=== PATIENT | male | born 1965 | race Caucasian/White ===

== ENCOUNTER 2020-06-18 15:57 | Inpatient (IN) | payer BC, OTHER ==
[2020-06-18] MEDS ORDERED: ACETAMINOPHEN 1000 MG/100 ML VIAL (NON FORMULARY) IVPB ONE (17:09)
[2020-06-18] MEDS ORDERED: ASPIRIN 81 MG CHEWABLE TABLETS PO ONE (17:09)
[2020-06-18 18:06] LABS: INR 1.2 (0.83-1.09); PROTHROMBIN TIME (PATIENT) 14.4 SEC (9.7-13.0)
[2020-06-18 18:09] LABS: ACTIVATED PTT 29.8 SECONDS (25.2-36.5)
[2020-06-18] MEDS ORDERED: ACETAMINOPHEN INJECTION 100 ML IVPB ONE (18:17)
[2020-06-18] MEDS ORDERED: ASPIRIN 81 MG CHEWABLE TABLETS ONE (18:17)
[2020-06-18 18:29] LABS: POTASSIUM 3.9 mmol/L (3.5-5.1)
[2020-06-18 18:31] LABS: CALCIUM 8.1 mg/dL (8.5-10.1)
[2020-06-18 18:35] LABS: BILIRUBIN,DIRECT 0.3 mg/dL (0.0-0.2)
[2020-06-18 18:36] LABS: BILIRUBIN,TOTAL 0.8 mg/dL (0.2-1); TOT PROT 6.9 g/dl (6.4-8.2)
[2020-06-18] MEDS ORDERED: DEXAMETHASONE SOD PHOSPHATE 4 MG/1 ML VIAL IVPUSH ONE (18:48)
[2020-06-18 18:58] VITALS: BMI 40.4
[2020-06-18 18:59] LABS: BASO % 0.4 % (0-2.0); HEMATOCRIT 45.2 % (35.4-49); HEMOGLOBIN 15.2 GM/dL (11.7-16.9); LYMPH % 19.5 % (8-40); MCH 30.9 pg (25.7-33.7); MCHC 33.6 g/dl (32.0-35.9); MEAN CELL VOLUME 91.9 fl (80-96); MEAN PLT VOLUME 7.9 fl (7.5-11.1); MONO % 11.8 % (3.8-10.2); NEUT % 66.3 % (42.8-82.8); PLATELET COUNT 199 K/MM3 (134-434); RBC 4.92 M/mm3 (4.00-5.60); RDW 13.8 % (11.9-15.9); WHITE BLOOD COUNT 5.5 K/mm3 (4.0-10.0)
[2020-06-18] MEDS ORDERED: DEXAMETHASONE SOD PHOSPHATE 10 MG/1 ML VIAL ONE (19:57)
[2020-06-18 20:09] LABS: EPI CELLS 17 /uL (0-25.1); HYALINE CASTS 4 /uL (0-3.1); URINE APPEARANCE CLEAR; URINE BACTERIA 54 /uL (0-1359); URINE BILIRUBIN 1+ (NEGATIVE); URINE COLOR DK YELLOW; URINE GLUCOSE (UA) NEGATIVE (NEGATIVE); URINE KETONE 2+ (NEGATIVE); URINE LEUK ESTERASE NEGATIVE (NEGATIVE); URINE NITRITE NEGATIVE (NEGATIVE); URINE PROTEIN 2+ (NEGATIVE); URINE RBC 17 /uL (0-23.9); URINE WBC 10 /uL (0-25.8)
[2020-06-19] MEDS ORDERED: ALBUTEROL SO4 HFA INHALER IH PRN (00:51)
[2020-06-19 08:10] LABS: POTASSIUM 4.6 mmol/L (3.5-5.1)
[2020-06-19 08:16] LABS: ALBUMIN 2.8 g/dl (3.4-5.0); BLOOD UREA NITROGEN 22.6 mg/dL (7-18); CALCIUM 8.5 mg/dL (8.5-10.1)
[2020-06-19 08:19] LABS: CREATININE 0.9 mg/dL (0.55-1.3)
[2020-06-19 08:20] LABS: BASO % 0.3 % (0-2.0); HEMOGLOBIN 15.5 GM/dL (11.7-16.9); LYMPH % 21.9 % (8-40); MCH 30.9 pg (25.7-33.7); MCHC 33.7 g/dl (32.0-35.9); MEAN CELL VOLUME 91.7 fl (80-96); MEAN PLT VOLUME 8.2 fl (7.5-11.1); NEUT % 68.8 % (42.8-82.8); PLATELET COUNT 206 K/MM3 (134-434); RBC 5.02 M/mm3 (4.00-5.60); RDW 13.7 % (11.9-15.9)
[2020-06-19 08:21] LABS: BILIRUBIN,TOTAL 0.6 mg/dL (0.2-1)
[2020-06-19 09:22] VITALS: TEMP 98.6
[2020-06-19] MEDS ORDERED: AZITHROMYCIN IVPB 500 MG/250 ML BAG IVPB SCH (10:00)
[2020-06-19] MEDS ORDERED: ASCORBIC ACID 500 MG TABLET (FP) PO SCH (10:00)
[2020-06-19] MEDS ORDERED: LOSARTAN POTASSIUM 50 MG TABLET PO SCH (10:00)
[2020-06-19] MEDS ORDERED: ZINC SULFATE 220 MG CAPSULE (FP) PO SCH (10:00)
[2020-06-19] MEDS ORDERED: ENOXAPARIN NA (PORCINE) 40 MG/0.4 ML DISP.SYRIN SQ SCH (10:00)
[2020-06-19] MEDS ORDERED: CHOLECALCIFEROL (VIT D3) 1,000 UNIT (25 MCG) TABLET PO SCH (10:00)
[2020-06-19] MEDS ORDERED: DEXAMETHASONE SOD PHOSPHATE 4 MG/1 ML VIAL IVPUSH SCH (10:00)
[2020-06-19] MEDS ORDERED: ZINC SULFATE 220 MG CAPSULE (FP) ONE (11:45)
[2020-06-19] MEDS ORDERED: ASCORBIC ACID 500 MG TABLET (FP) ONE (11:45)
[2020-06-19] MEDS ORDERED: LOSARTAN POTASSIUM 50 MG TABLET ONE (11:45)
[2020-06-19] MEDS ORDERED: DEXAMETHASONE SOD PHOSPHATE 10 MG/1 ML VIAL ONE (11:45)
[2020-06-19] MEDS ORDERED: AZITHROMYCIN IVPB 500 MG/250 ML BAG IVPB ONE (11:46)
[2020-06-19] MEDS ORDERED: CHOLECALCIFEROL (VIT D3) 1,000 UNIT (25 MCG) TABLET ONE (11:46)
[2020-06-19] MEDS ORDERED: ENOXAPARIN NA (PORCINE) 40 MG/0.4 ML DISP.SYRIN SQ ONE (11:46)
[2020-06-19] MEDS ORDERED: REMDESIVIR 200 MG in SODIUM CHLORIDE 210 ML IVPB ONE (15:00)
[2020-06-19 18:33] VITALS: BP 127/61; PULSE 90
[2020-06-20] MEDS ORDERED: REMDESIVIR 100 MG in SODIUM CHLORIDE 230 ML IVPB SCH (15:00)
== END 2020-06-19 16:00 | disposition left against medical advice (07) | DRG 178 ==
LOC: JER 15:57 → JERBED 18:26
PROVIDERS: ADMIT Internal Medicine; ATTEND Internal Medicine
DX: U07.1 COVID-19 (principal); Z68.41 Body mass index [BMI] 40.0-44.9, adult; I10 Essential (primary) hypertension; K21.9 Gastro-esophageal reflux disease without esophagitis; E78.5 Hyperlipidemia, unspecified; E66.01 Morbid (severe) obesity due to excess calories; G47.33 Obstructive sleep apnea (adult) (pediatric)
CPT/HCPCS: 36415; 71045-TC-FY; 71046-TC-FY; 80053; 81003; 82248; 82550; 82728; 83605; 83615; 83880; 84484; 85025; 85379; 85610; 85730; 86140; 87040; 87086; 87804; 93005; 93010; 99285-25; C9803; J0131; U0003

== ENCOUNTER 2022-05-22 10:08 | Inpatient (IN) | payer BC ==
[2022-05-15 13:39] VITALS: BMI 49.9
[2022-05-22] MEDS ORDERED: BUPIVACAINE HCL/PF 2.5 MG/ML - 30 ML VIAL IJ ONE (10:38)
[2022-05-22] MEDS ORDERED: ONDANSETRON 4 MG/2 ML VIAL IVPUSH PRN ×2 (11:34→14:35)
[2022-05-22] MEDS ORDERED: PROMETHAZINE HCL 25 MG/1 ML VIAL IVPUSH PRN (11:34)
[2022-05-22] MEDS ORDERED: oxyCODONE HCL 5 MG TABLET PO PRN (11:34)
[2022-05-22] MEDS ORDERED: LACTATED RINGERS SOLUTION 1,000 ML IV SCH (11:45)
[2022-05-22] MEDS ORDERED: PROPOFOL 20 ML ONE ×2 (12:02→12:06)
[2022-05-22] MEDS ORDERED: MIDAZOLAM HCL 2 MG/2 ML SINGLE DOSE VIAL ONE (12:02)
[2022-05-22] MEDS ORDERED: SUCCINYLCHOLINE CHLORIDE 200 MG/10 ML SYRINGE ONE (12:02)
[2022-05-22] MEDS ORDERED: ROCURONIUM BROMIDE 50 MG/5 ML SYRINGE ONE (12:02)
[2022-05-22] MEDS ORDERED: GLYCOPYRROLATE 0.2 MG/1 ML VIAL ONE ×3 (12:03→14:48)
[2022-05-22] MEDS ORDERED: LIDOCAINE HCL/PF 2% SDV 5ML VIAL ONE (12:08)
[2022-05-22] MEDS ORDERED: SODIUM CHLORIDE 0.9% P/F 10 ML VIAL IJ ONE (12:24)
[2022-05-22] MEDS ORDERED: ceFAZolin SODIUM 1 GM VIAL ONE (12:24)
[2022-05-22] MEDS ORDERED: ALBUTEROL SO4 HFA INHALER IH ONE (12:27)
[2022-05-22] MEDS ORDERED: ONDANSETRON 4 MG/2 ML VIAL ONE ×2 (12:27→13:58)
[2022-05-22] MEDS ORDERED: DEXAMETHASONE SOD PHOSPHATE 4 MG/1 ML VIAL ONE ×2 (12:27→13:58)
[2022-05-22] MEDS ORDERED: ACETAMINOPHEN INJECTION 100 ML IVPB ONE (13:28)
[2022-05-22] MEDS ORDERED: NEOSTIGMINE METHYLSULFATE 0.5 MG/1 ML - 10 ML MDV ONE (14:03)
[2022-05-22] MEDS ORDERED: HYDROmorphone HCL/PF 1 MG/ML VIAL IVPB PRN ×2 (14:38→14:39)
[2022-05-22] MEDS: METOCLOPRAMIDE HCL INJECTION 10 MG/2 ML VIAL IVPUSH SCH ×2 (15:00→22:19)
[2022-05-22] MEDS ORDERED: FAMOTIDINE 20 MG PREMIXED IVPB IVPB ONE (15:45)
[2022-05-22] MEDS ORDERED: FAMOTIDINE 20 MG/50 ML IVPB 20 MG/50 ML MG IVPB ONE (15:51)
[2022-05-22] MEDS: SODIUM CHLORIDE 1,000 ML IV SCH (16:00)
[2022-05-22 16:19] LABS: HEMATOCRIT 46.8 % (35.4-49); HEMOGLOBIN 15.5 G/dL (11.7-16.9); MCH 29.8 pg (25.7-33.7); MCHC 33.2 g/dl (32.0-35.9); MEAN CELL VOLUME 89.8 fl (80-96); MEAN PLT VOLUME 8.1 fl (7.5-11.1); PLATELET COUNT 213.8 10^3/uL (134-434); RBC 5.21 10^6/uL (4.00-5.60); RDW 14.5 % (11.9-15.9); WHITE BLOOD COUNT 12.8 10^3/uL (4.0-10.8)
[2022-05-22 16:23] LABS: ALBUMIN 3.9 g/dl (3.4-5.0); BILIRUBIN,TOTAL 1.5 mg/dl (0.2-1); CALCIUM 8.4 mg/dl (8.5-10); CREATININE 1.3 mg/dl (0.55-1.3); TOT PROT 6.7 g/dl (6.4-8.2)
[2022-05-22 21:58] LABS: HEMATOCRIT 46.6 % (35.4-49); HEMOGLOBIN 15.8 G/dL (11.7-16.9); MCH 30.3 pg (25.7-33.7); MCHC 33.9 g/dl (32.0-35.9); MEAN CELL VOLUME 89.4 fl (80-96); MEAN PLT VOLUME 7.8 fl (7.5-11.1); PLATELET COUNT 194.3 10^3/uL (134-434); RBC 5.21 10^6/uL (4.00-5.60); RDW 14.2 % (11.9-15.9); WHITE BLOOD COUNT 13.4 10^3/uL (4.0-10.8)
[2022-05-22 22:16] LABS: ALBUMIN 3.9 g/dl (3.4-5.0); BILIRUBIN,TOTAL 2.3 mg/dl (0.2-1); CALCIUM 8.5 mg/dl (8.5-10); CREATININE 1.2 mg/dl (0.55-1.3); TOT PROT 6.9 g/dl (6.4-8.2)
[2022-05-22] MEDS: FAMOTIDINE 20 MG/50 ML IVPB 20 MG/50 ML MG IVPB SCH (22:20)
[2022-05-22] MEDS: ACETAMINOPHEN 1000 MG/100 ML BAG IVPB PRN (22:26)
[2022-05-23] MEDS: METOCLOPRAMIDE HCL INJECTION 10 MG/2 ML VIAL IVPUSH SCH ×3 (05:16→15:38)
[2022-05-23] MEDS: ACETAMINOPHEN 1000 MG/100 ML BAG IVPB PRN (07:54)
[2022-05-23 08:27] LABS: HEMATOCRIT 45.2 % (35.4-49); HEMOGLOBIN 15.3 G/dL (11.7-16.9); MCH 29.2 pg (25.7-33.7); MCHC 33.8 g/dl (32.0-35.9); MEAN CELL VOLUME 86.6 fl (80-96); MEAN PLT VOLUME 7.8 fl (7.5-11.1); PLATELET COUNT 223.5 10^3/uL (134-434); RBC 5.22 10^6/uL (4.00-5.60); RDW 14.2 % (11.9-15.9); WHITE BLOOD COUNT 16.4 10^3/uL (4.0-10.8)
[2022-05-23 08:36] LABS: ALBUMIN 3.6 g/dl (3.4-5.0); BILIRUBIN,TOTAL 1.9 mg/dl (0.2-1); CREATININE 1.2 mg/dl (0.55-1.3); TOT PROT 6.4 g/dl (6.4-8.2)
[2022-05-23 09:12] LABS: CALCIUM 8.3 mg/dl (8.5-10)
[2022-05-23] MEDS: FAMOTIDINE 20 MG/50 ML IVPB 20 MG/50 ML MG IVPB SCH (09:15)
[2022-05-23 10:48] VITALS: PULSE 100; RESP 19
[2022-05-23] MEDS: SODIUM CHLORIDE 1,000 ML IV SCH (15:38)
[2022-05-23] MEDS ORDERED: ENOXAPARIN NA (PORCINE) 40 MG/0.4 ML DISP.SYRIN SQ ONE (16:12)
[2022-05-23 17:00] VITALS: BP 134/75; TEMP 98.7
== END 2022-05-23 17:02 | disposition home or self-care (01) | DRG 621 ==
LOC: FM/S 10:08
PROVIDERS: ADMIT Surgery; ATTEND Surgery
PROC: 0FB24ZX Excision of Left Lobe Liver, Percutaneous Endoscopic Approach, Diagnostic (ICD-10-PCS; 2022-05-22)
PROC: 0DJD4ZZ Inspection of Lower Intestinal Tract, Percutaneous Endoscopic Approach (ICD-10-PCS; 2022-05-22)
PROC: 0DB64Z3 Excision of Stomach, Percutaneous Endoscopic Approach, Vertical (ICD-10-PCS; principal; 2022-05-22 12:40)
DX: E66.01 Morbid (severe) obesity due to excess calories (principal); Z68.42 Body mass index [BMI] 45.0-49.9, adult; R16.0 Hepatomegaly, not elsewhere classified; G47.33 Obstructive sleep apnea (adult) (pediatric); I10 Essential (primary) hypertension
CPT/HCPCS: 36415; 74240-TC-FY; 80053; 85027; 86850; 86900; 86901; 88307-TC; 94660; 94760